=== PATIENT | female | born 1985 | race Caucasian/White ===

== ENCOUNTER 2021-09-20 13:25 | Emergency (ER) | payer MEDICAID ==
[~2021-09-20] VITALS: Ht 167.6 cm; Wt 63.5 kg
--- NOTE | 2021-09-20 14:20 | NUR ---
SAL[facility] L[facility] ESTABLISHED, BLOOD DRAWN AND SENT TO LAB
[2021-09-20] MEDS ORDERED: CHLORDIAZEPOXIDE HCL 25 MG CAPSULE PO ONE (14:30)
[2021-09-20] MEDS ORDERED: IV NS 0.9% 1,000 ML BAG IV ONE (14:30)
[2021-09-20] MEDS ORDERED: CHLORDIAZEPOXIDE HCL 25 MG CAPSULE ONE (14:41)
[2021-09-20 14:52] LABS: BASOPHILS # (AUTO) 0.1 K/uL (0.0-0.2); BASOPHILS % (AUTO) 1.3 % (0.0-2.0); EOSINOPHILS % (AUTO) 5.9 % (0.0-6.0); HEMATOCRIT 46 % (33-45); HEMOGLOBIN 15.2 g/dL (11.5-14.8); LYMPHOCYTES # (AUTO) 2.2 K/uL (0.8-4.8); LYMPHOCYTES % (AUTO) 31.5 % (20.0-44.0); MEAN CORPUSCULAR HGB CONC 33 g/dl (31.0-36.0); MEAN CORPUSCULAR VOLUME 96 fL (82-100); MONOCYTES # (AUTO) 0.6 K/uL (0.1-1.30); MONOCYTES % (AUTO) 8.4 % (2.0-12.0); NEUTROPHILS # (AUTO) 3.8 K/uL (1.8-8.9); NEUTROPHILS % (AUTO) 52.9 % (43.0-81.0); PLATELET COUNT (AUTO) 318 K/uL (150-450); RED BLOOD CELL COUNT(AUTO) 4.78 MIL/uL (4.0-5.2); WHITE BLOOD COUNT (AUTO) 7.1 K/uL (4.3-11.0)
--- NOTE | 2021-09-20 14:53 | NUR ---
UNABLE TO PROVIDE URINE AT THIS TIME
[2021-09-20] MEDS ORDERED: CHLO25CA22 PO (15:44)
[2021-09-20 17:36] LABS: CALCIUM, SERUM 8.3 mg/dL (8.5-10.1); CARBON DIOXIDE 23 mmol/L (21-32); CHLORIDE 104 mmol/L (98-107); CREATININE 0.8 mg/dL (0.6-1.3); GLUCOSE 62 mg/dL (74-106); POTASSIUM 4.1 mmol/L (3.5-5.1); SODIUM SERUM 140 mmol/L (136-145); UREA NITROGEN, BLOOD 15 mg/dL (7-18)
[2021-09-20 17:42] LABS: ALANINE AMINOTRANSFERASE 17 U/L (12-78); ALBUMIN 3.6 g/dL (3.4-5.0); ALKALINE PHOSPHATASE 54 U/L (46-116); ASPARTATE AMINOTRANSFERASE 14 U/L (15-37); BILIRUBIN,DIRECT 0.2 mg/dL (0.0-0.2); BILIRUBIN,TOTAL 1.2 mg/dL (0.2-1.0); TOTAL PROTEIN, SERUM 7.1 g/dL (6.4-8.2)
[2021-09-20 17:47] LABS: ALCOHOL, BLOOD < 3 mg/dL (0-0)
--- NOTE | 2021-09-20 18:24 | NUR ---
Patient discharged to home in stable condition. Written and verbal after care instructions given and prescription. Patient verbalizes understanding of instruction.
[2021-09-20 18:25] VITALS: BP 126/81
== END 2021-09-20 18:25 | disposition home or self-care (01) ==
LOC: ER 13:36
DX: F13.239 Sedative, hypnotic or anxiolytic dependence with withdrawal, unspecified (principal); E16.2 Hypoglycemia, unspecified; E80.6 Other disorders of bilirubin metabolism; Z60.2 Problems related to living alone
CPT/HCPCS: 36415; 80048; 80076; 80320; 85025; 96360; 99283; J7030; G0480